=== PATIENT | female | born 1985 | race Caucasian/White ===

== ENCOUNTER 2016-07-30 22:47 | Emergency (ER) | payer MEDICAID ==
[~2016-07-30] VITALS: Ht 162.6 cm; Wt 58.2 kg
[2016-07-30 22:57] VITALS: BP 143/96
--- NOTE | 2016-07-30 23:10 | NUR ---
TO ER BED 4
[2016-07-30] MEDS ORDERED: NACL 0.9% 1,000 ML IV ONE (23:15)
[2016-07-30 23:43] LABS: AMPHETAMINE, URINE NEG. ng/ml (NEG <=1000); BARBITURATE, URINE NEG. ng/ml (NEG <=200); BENZODIAZEPINE, URINE NEG. ng/mL (NEG <=200); CANNABINOID, URINE POS. ng/mL (NEG <=50); COCAINE, URINE NEG. ng/mL (NEG <=300); OPIATE, URINE NEG. ng/mL (NEG <=2000); PHENCYCLIDINE SCREEN,URINE NEG. ng/mL (NEG <=25)
[2016-07-30] MEDS ORDERED: LORazepam 2 MG/ML VIAL IVP ONE (23:45)
--- NOTE | 2016-07-30 23:45 | NUR ---
PT IS 30/F BIB SELF TO ED WITH C/O POSSIBLE DRUG INGESTION x LAST NIGHT. PT STATES SHE WAS FEELING HOT AND LIGHTHEADED 20 MINUTES AGO FROM TIME OF ARRIVAL. PT DENIES PAIN. PT STATES SHE FILLED REPORT TO [place] PD CASE # [id number], VERIFIED WITH PHONE DOCUMENT. AAOx4, PERRLA, BREATHING EVEN AND EFFORTLESS. PT STATES HX: ANXIETY DENIES N/V/D; SKIN IS PINK/WARM/DRY; EVEN AND STEADY GAIT; LUNGS CLEAR BL; HR EVEN AND REGULAR; PT DENIES ANY FEVER, CP, SOB, OR COUGH AT THIS TIME; PATIENT STATES PAIN OF 0/10 AT THIS TIME; VSS; PATIENT POSITIONED FOR COMFORT; HOB ELEVATED; BEDRAILS UP X2; BED DOWN. ER MD MADE AWARE OF PT STATUS.
[2016-07-30 23:48] LABS: HEMOGLOBIN 13.9 g/dL (12.0-16.0); WHITE BLOOD COUNT (AUTO) 12.8 K/uL (4.8-10.8)
[2016-07-30 23:55] LABS: HEMATOCRIT 41.6 % (36-48); MEAN CORPUSCULAR HEMOGLOBIN 30 pg (27-31); MEAN CORPUSCULAR HGB CONC 33 g/dL (33-37); MEAN CORPUSCULAR VOLUME 89 fL (80-94); PLATELET COUNT (AUTO) 348 K/uL (140-450); RED BLOOD CELL COUNT(AUTO) 4.67 MIL/uL (4.20-5.40); RED CELL DISTRIBUTION WIDTH 13.8 % (11.6-13.7)
[2016-07-30 23:57] LABS: ALBUMIN 4.4 g/dL (3.4-5.0); ANION GAP 19.7 (8-16); BASOPHILS % (MANUAL) 1 % (0-2); CALCIUM 9.2 mg/dL (8.5-10.1); CARBON DIOXIDE 21.7 mmol/L (21-32); CREATININE 0.9 mg/dL (0.6-1.3); EOSINOPHILS % (MANUAL) 1 % (0-4); LYMPHOCYTES % (MANUAL) 36 % (20-46); MONOCYTES % (MANUAL) 8 % (5-12); NEUTROPHILS % (MANUAL) 54 (43-65); POTASSIUM 3.4 mmol/L (3.5-5.1); TOTAL PROTEIN, SERUM 7.5 g/dL (6.4-8.2)
[2016-07-31 00:11] LABS: INR 1.1 (0.8-1.2); PARTIAL THROMBOPLASTIN TIME 28.3 secs (22-35.6); PROTHROMBIN TIME 10.5 secs (10.8-13.4)
--- NOTE | 2016-07-31 01:02 | NUR ---
PT APPEARS TO BE SLEEPING IN BED. NO SOB NOTED. WILL CONTINUE TO MONITOR.
[2016-07-31 02:08] VITALS: BP 125/93
--- NOTE | 2016-07-31 02:09 | NUR ---
Patient discharged with v/s stable. Written and verbal after care instructions given and explained. Patient alert, oriented and verbalized understanding of instructions. Ambulatory with steady gait. All questions addressed prior to discharge. ID band removed. Patient advised to follow up with PMD. NO Rx WERE given. Patient educated on indication of medication including possible reaction and side effects. Opportunity to ask questions provided and answered.
== END 2016-07-31 02:08 | disposition home or self-care (01) ==
LOC: MED 22:47
DX: F41.1 Generalized anxiety disorder (principal)
CPT/HCPCS: 36415; 80053; 80305; 81002; 81025; 85025; 85610; 85730; 93005; 96361; 96374; 99285; J2060; J7030